=== PATIENT | female | born 1930 | race Caucasian/White ===

== ENCOUNTER 2016-06-11 09:53 | Outpatient (CLI) | payer MEDICARE ==
[~2016-06-11] VITALS: Ht 152.4 cm; Wt 88.2 kg
[~2016-06-11 09:53] MED LIST: ACET-785 PO; ASPI-725 PO; ATEN-39 PO; CHLO25TA16 PO; CHOL200014 PO; FISH1CAP28 PO; OMEP20TA24 PO; [UNRECOGNIZED DRUG - CODE] PO; [UNRECOGNIZED DRUG - CODE] PO
[2016-06-11] MEDS ORDERED: ZOLEDRONIC ACID 5MG 100 ML IV ONE (10:15)
[2016-06-11 10:24] VITALS: BP 102/68; PULSE 57; RESP 16; TEMP 96.5; O2SAT 92
[2016-06-11 10:27] VITALS: Ht 152.4 cm; Wt 88.2 kg
[2016-06-11] MEDS ORDERED: NS 500 ML IV PRN (10:30)
[2016-06-11] MEDS ORDERED: MELO-273 PO (10:39)
[2016-06-11] MEDS ORDERED: MULT-1198 PO (10:39)
[2016-06-11] MEDS ORDERED: LATA2.5D7 OP (10:39)
[2016-06-11] MEDS ORDERED: ATOR10TA64 PO (10:39)
[2016-06-11] MEDS ORDERED: MAGN400O4 PO (10:39)
[2016-06-11] MEDS ORDERED: HYDR-3989 PO (10:39)
[2016-06-11] MEDS ORDERED: BENA5TAB3 PO (10:39)
[2016-06-11] MEDS ORDERED: METO25TA6 PO (10:39)
[2016-06-11] MEDS ORDERED: RIVA15TA PO (10:45)
[2016-06-11] MEDS ORDERED: SENN8.6T94 PO (10:45)
[2016-06-11] MEDS ORDERED: TIMO5SOL OP (10:45)
== END 2016-06-11 11:15 | disposition home or self-care (01) ==
LOC: INF.THER 09:53
DX: M81.0 Age-related osteoporosis without current pathological fracture (principal)
CPT/HCPCS: 96365; J3489